=== PATIENT | female | born 1965 | race Two or more races ===

== ENCOUNTER 2022-03-02 07:15 | Inpatient (IN) | payer OTHER ==
[~2022-03-02] VITALS: Ht 162.6 cm; Wt 83.0 kg
[2022-03-02] MEDS ORDERED: PEPCID AC20 MG (08:40)
[2022-03-02] MEDS ORDERED: ADULT LOW DOSE81 M1 (08:41)
[2022-03-02] MEDS ORDERED: TOPROL XL25 M1 (08:41)
[2022-03-02] MEDS ORDERED: ATORVASTATIN CA40 MG PO (08:41)
[2022-03-08] MEDS ORDERED: PERCOCET 5-3251 EACH PO (14:33)
[2022-03-08] MEDS ORDERED: DUI500 PO (14:33)
[2022-03-08] MEDS ORDERED: ELIQUIS2.5 MG PO (14:33)
[2022-03-09] MEDS ORDERED: DUI500 PO (09:21)
[2022-03-09] MEDS ORDERED: PERCOCET 5-3251 EACH PO (09:21)
[2022-03-09] MEDS ORDERED: ELIQUIS2.5 MG PO (09:21)
== END 2022-03-09 14:14 | DRG 467 ==
LOC: SURG 03-06 05:58 → O/R 03-06 05:58 → SURG 03-06 07:15
PROVIDERS: ADMIT Orthopaedic Surgery; ATTEND Orthopaedic Surgery
PROC: 0QS604Z Reposition Right Upper Femur with Internal Fixation Device, Open Approach (ICD-10-PCS; 2022-03-06)
PROC: 0QU60JZ Supplement Right Upper Femur with Synthetic Substitute, Open Approach (ICD-10-PCS; 2022-03-06)
PROC: 0SW90JZ Revision of Synthetic Substitute in Right Hip Joint, Open Approach (ICD-10-PCS; principal; 2022-03-06 19:00)
DX: T84.090A Other mechanical complication of internal right hip prosthesis, initial encounter (principal); D62 Acute posthemorrhagic anemia; T84.030A Mechanical loosening of internal right hip prosthetic joint, initial encounter; M25.751 Osteophyte, right hip